=== PATIENT | female | born 2000 | race Caucasian/White ===

== ENCOUNTER 2024-04-03 09:34 | Emergency (ER) | payer OTHER ==
[~2024-04-03] VITALS: Ht 160 cm; Wt 65.8 kg
[2024-04-03] MEDS ORDERED: Tetanus and Diphtheria Toxoid 0.5 ML INJ IM ONE (10:40)
[2024-04-03] MEDS ORDERED: CEPH500 PO (10:45)
== END 2024-04-03 11:05 | disposition home or self-care (01) ==
LOC: ER 09:34
DX: S60.453A Superficial foreign body of left middle finger, initial encounter (principal); W22.8XXA Striking against or struck by other objects, initial encounter
CPT/HCPCS: 10120; 90471; 90714; 99282-25